=== PATIENT | male | born 1980 | race Caucasian/White ===

== ENCOUNTER → 2024-02-15 | Outpatient (CLI) | payer BC ==
--- NOTE | 2024-02-17 08:44 | US ---
EXAMINATION TYPE: US scrotum with doppler. DATE OF EXAM: 02/15/2024 COMPARISON: NONE CLINICAL INDICATION: Male, 43 years old with history of N45.4 EPIDIDYMITIS; Right side pain. Patient states he felt a right pain in groin and since then, pain has gone away. Patient has been on antibi otics x 6 days. TECHNIQUE: Grayscale, color Doppler and spectral Doppler imaging of the scrotum. FINDINGS: EXAM MEASUREMENTS: TESTICLES: Right Testicle: 4.8 x 4.3 x 2.7 cm Left Testicle: 3.4 x 3.1 x 2.5 cm EPIDIDYMIS HEAD: Right Epididymis: 1.1 x 0.7 cm, heterogenous Left Epididymis: 0.9 x 0.7 cm, anechoic lesion = 0.3 x 0.3 cm compatible with cysts. Doppler performed to assess for testicular vascularity; good bilateral color flow and waveforms are s een. There is no evidence of testicular torsion. Presence of hydroceles: Bilateral, internal echoes seen within left hydrocele Presence of varicoceles: No IMPRESSION: 1. Mild heterogenous right epididymis without increased color vascular flow. 2. No evidence for testicular torsion. 3. No acute testicular mass. 4. Small bilateral hydroceles. [facility], , 02/17/2024 8:42 AM
== END | disposition home or self-care (01) ==
LOC: RADUSWWP 08:21
PROVIDERS: ATTEND Family Medicine
CPT/HCPCS: 76870; 93975